=== PATIENT | female | born 1975 | race Caucasian/White ===

== ENCOUNTER 2020-09-06 11:22 | Emergency (ER) | payer BC, SELFPAY ==
[2020-09-06 12:00] VITALS: BP 114/80; PULSE 77; RESP 18; TEMP 36.3; O2SAT 96
--- NOTE | 2020-09-06 13:06 | ED.ANXIETY ---
HPI - Anxiety General Chief Complaint: Anxiety Stated Complaint: anxiety Time Seen by Provider: 09/06/20 12:28 History of Present Illness HPI narrative: Feeling very anxious for the past several days. Increasing in severity. She has a constant feeling that something is very wrong, but she does not know what. She is not able to sleep and has no appetite. She has an up coming appointment to see someone about this, but did not feel that it could wait. Related Data Allergies Allergy/AdvReac Type Severity Reaction Status Date / Time No Known Allergies Allergy Unverified 09/11/13 15:20 Review of Systems Review of Systems: All systems reviewed & are unremarkable except as noted in HPI and below Constitutional: Constitutional: Denies chills, Reports fatigue, Denies fever(s) and Denies weakness Eyes: Eyes: Reports no additional eye complaints Cardiovascular: Cardiovascular: Denies chest pain Respiratory: Respiratory: Denies dyspnea Gastrointestinal: Gastrointestinal: Denies abdominal pain and Denies nausea Genitourinary: Genitourinary: Denies hematuria and Denies dysuria Musculoskeletal: Musculoskeletal: Denies back pain Neurologic: Reports as per HPI Psychiatric: Psychiatric: Reports as per HPI, Denies homicidal ideation and Denies suicidal ideation [facility] Social History Social History Substance use type: does not use Exam Const: General: no acute distress and alert Nutritional Appearance: thin Orientation/consciousness: patient oriented x3 HENMT: Head: normal to inspection Eyes: Conjunctivae: conjunctivae normal Pupils: Equal, round and reactive pupils present EOM: EOMs intact bilaterally Resp: Effort & Inspection: normal respiratory effort Auscultation: clear to auscultation bilaterally Cardio: Rate: regular rate Rhythm: regular rhythm GI: Inspection: non-distended GI Palp: Yes Soft to palpation and No Tenderness to palpation present (GI) Skin: General skin exam: normal color Neuro: General: patient oriented x3, moves all extremities, no focal motor deficits and CN's II-XI intact bilaterally Speech: normal speech Extrem: General: normal to inspection Psych: Appearance: grossly normal Mental Status: mental status grossly normal Affect: normal affect and Anxious affect present Attitude: cooperative Course Vital Signs Vital signs: Vital Signs Temperature 36.3 C L 09/06/20 12:00 Pulse Rate 77 09/06/20 12:00 Respiratory Rate 18 09/06/20 12:00 Blood Pressure 114/80 09/06/20 12:00 Pulse Oximetry 96 09/06/20 12:00 Temperature 36.3 C L 09/06/20 12:00 Pulse Rate 68 09/06/20 14:50 Respiratory Rate 16 09/06/20 14:50 Blood Pressure 133/88 09/06/20 14:50 Pulse Oximetry 99 09/06/20 14:50 MDM - Anxiety Differential Diagnosis Differential diagnosis: Likely panic disorder, acute anxiety and other (SHAGGY) Discharge Plan Discharge Clinical Impression: Anxiety Patient Disposition: Home, Self-Care Condition: Stable Instructions: Anxiety (ED) Prescriptions: New clonazepam [Klonopin] 0.5 mg tablet 0.5 mg PO BID PRN (Reason: anxiety) Qty: 10 RF: 0 metoclopramide HCl [Reglan] 10 mg tablet 10 mg PO Q6H PRN (Reason: nausea and vomiting) Qty: 10 RF: 0 Follow-up/Referrals: PHYSICIAN,RELIABILITY SPECIALIST [Primary Care Provider] -
--- NOTE | 2020-09-06 13:16 | PC.NURSE ---
Keisha MCCLAIN at bedside.
[2020-09-06] MEDS: METOCLOPRAMIDE HCL 10 MG TABLET PO (13:32)
[2020-09-06] MEDS: LORazepam (*CRX) 0.5 MG TABLET PO (13:32)
--- NOTE | 2020-09-06 13:33 | PC.NURSE ---
Pt medicated per provider order, resting on stretcher, calm and cooperative, updated on plan of care and denies further concern.
[2020-09-06 14:00] VITALS: BP 118/75; PULSE 78; RESP 16; O2SAT 100
--- NOTE | 2020-09-06 14:00 | PC.NURSE ---
Pt provided with turkey sandwich at this time per edp jose pt resting on stretcher, calm, states she is feeling better after the medication, attempting to eat at this time.
--- NOTE | 2020-09-06 14:01 | PC.NURSE ---
RICO Valdes at bedside.
--- NOTE | 2020-09-06 14:10 | PC.NURSE ---
EDP Keisha at bedside check on pt.
--- NOTE | 2020-09-06 14:10 | PC.NURSE ---
Pt to ct at this time, will medicate upon return.
--- NOTE | 2020-09-06 14:17 | PC.NURSE ---
Pt has returned from CT at this time, rn to bedside.
[2020-09-06 14:50] VITALS: BP 133/88; PULSE 68; RESP 16; O2SAT 99
== END 2020-09-06 14:50 | disposition home or self-care (01) ==
PROVIDERS: Emergency Provider Emergency Medicine
DX: F41.9 Anxiety disorder, unspecified (principal)
CPT/HCPCS: 99283; A9270

== ENCOUNTER 2024-01-23 12:13 | Outpatient (CLI) | payer BC, SELFPAY ==
--- NOTE | ~2024-01-23 | MM_ITS ---
EXAMINATION: MM screening krista BI w lo HISTORY: Screening TECHNIQUE: Craniocaudal and mediolateral oblique 3-D tomosynthesis images were obtained and synthetic 2-D images were generated. CAD analysis was submitted and interpreted. COMPARISON: No prior mammogram is available for comparison at this institution. BREAST PARENCHYMAL COMPOSITION: Dense: The breasts are heterogeneously dense, which may obscure small masses FINDINGS: There is no evidence of suspicious mass, calcification, or architectural distortion to sugg est malignancy in either breast. There has been no suspicious interval change. IMPRESSION: 1. No mammographic evidence of malignancy. 2. Recommend routine screening mammography in one year. BI-RADS Category 1: Negative Reviewed, dictated and finalized at location B.
== END 2024-01-23 12:14 ==
LOC: MICIMG 12:14
PROVIDERS: PCP Family Medicine; Visit Provider Nurse Practitioner Women's Health
DX: Z12.31 Encounter for screening mammogram for malignant neoplasm of breast (principal)
CPT/HCPCS: 77063; 77067

== ENCOUNTER 2025-01-25 11:44 | Outpatient (CLI) | payer BC, SELFPAY ==
--- NOTE | ~2025-01-25 | MM_ITS ---
EXAMINATION: MM screening krista BI w lo HISTORY: Screening TECHNIQUE: Craniocaudal and mediolateral oblique 3-D tomosynthesis images were obtained and synthetic 2-D images were generated. CAD analysis was submitted and interpreted. COMPARISON: 01/23/2024. BREAST PARENCHYMAL COMPOSITION: The breasts are heterogeneously dense, which may obscure small masses. FINDINGS: There is no evidence of suspicious mass, calcification, or architectural distortion to suggest malignancy in either breast. IMPRESSION: 1. No mammographic evidence of malignancy. 2. Recommend routine screening mammography in one year. BI-RADS Category 1: Negative Reviewed, dictated and finalized at location B.
== END 2025-01-25 11:45 | disposition home or self-care (01) ==
PROVIDERS: PCP Obstetrics & Gynecology Gynecology; Visit Provider Family Medicine
DX: Z12.31 Encounter for screening mammogram for malignant neoplasm of breast (principal)
CPT/HCPCS: 77063; 77067